=== PATIENT | female | born 1980 | race Hispanic/Latino ===

== ENCOUNTER → 2025-06-16 | Outpatient (REF) | payer OTHER ==
[~2025-06-16] MED LIST: SOLODYN115 MG PO
== END ==
LOC: DX 09:44
PROVIDERS: ATTEND Otolaryngology
DX: K21.9 Gastro-esophageal reflux disease without esophagitis (principal); R09.A2 Foreign body sensation, throat; R49.0 Dysphonia; R13.10 Dysphagia, unspecified
CPT/HCPCS: 74230